=== PATIENT | male | born 1955 | race Caucasian/White ===

== ENCOUNTER 2020-05-07 16:46 | Outpatient (REF) | payer MEDICAID, SELFPAY | END 2020-05-07 16:47 | disposition home or self-care (01) | LOC: HO.LAB 16:46 | PROVIDERS: Visit Provider Internal Medicine | DX: Z20.828 Contact with and (suspected) exposure to other viral communicable diseases (principal) | CPT/HCPCS: C9803; U0003 ==

== ENCOUNTER 2020-11-17 16:00 | Emergency (ER) | payer MEDICAID, SELFPAY ==
--- NOTE | ~2020-11-17 | XR_ITS ---
EXAMINATION: XR FOOT, LEFT CLINICAL INFORMATION: Foreign body in great toe. COMPARISON: None TECHNIQUE: AP, lateral, and oblique views of the left foot. FINDINGS: There is a linear foreign body in the soft tissues of the great toe adjacent to the distal tuft at the lateral side of the great toe. This measures 0.8 cm of length. No fracture or dislocation. Bone and joint are normal. XR/XR foot LT min 3V IMPRESSION: Linear foreign body in the soft tissues of great toe
[2020-11-17 16:11] VITALS: BP 115/73; PULSE 79; RESP 18; TEMP 37.1; O2SAT 98; BMI 25.1
[2020-11-17 18:37] VITALS: BP 147/77; PULSE 69; O2SAT 99
--- NOTE | 2020-11-17 18:40 | ED.GENADULT ---
HPI - General Adult General Chief complaint: Skin/Abscess/Foreign Body Stated complaint: FB in foot Time Seen by Provider: 11/17/20 18:40 Source: patient Mode of arrival: ambulatory Limitations: no limitations History of Present Illness HPI narrative: Patient reports that he stepped on a glass 3 days ago and was trying to remove it from his left great toe. Patient reports that today he continues to have pain and slight swelling. He believes that the glasses still imbedded in their. Patient denies any other symptoms. Related Data Previous Rx's Medication Instructions Recorded amoxicillin-pot clavulanate 1 tab PO BID 7 Days #14 tab 11/17/20 [Augmentin] Allergies Allergy/AdvReac Type Severity Reaction Status Date / Time No Known Allergies Allergy Verified 11/17/20 18:50 Review of Systems Review of Systems: Constitutional : No Weight loss, No Fever, No Chills, No Night Sweats, No Fatigue, No Malaise ENT/Mouth : No Hearing loss, No Ear Pain, No Nasal Congestion, No Sinus Pain, No Hoarseness, No sore throat, No Rhinorrhea, No Swallowing Difficulty Eyes: No Eye Pain, No Swelling, No Redness, No Foreign Body, No Discharge, No Vision Changes Cardiovascular : No Chest Pain, No SOB, No Dyspnea on Exertion, No Orthopnea, No Edema, No Palpitations Respiratory : No Cough, No Sputum, No Wheezing, No Smoke Exposure, No Dyspnea Gastrointestinal : No Nausea, No Vomiting, No Diarrhea, No Constipation, No abdominal Pain, No Hematochezia, No Melena Genitourinary : no irregular bleeding, No Dysuria, No Urinary Frequency, No Hematuria, No Urinary Incontinence, No Urgency, No Flank Pain, No Urinary Flow Changes, No Hesitancy Musculoskeletal : No joint pain, No Myalgias, No Joint Swelling Skin : No Skin Lesions, No rash, piece of glass in left great toe Neuro : No Weakness, No Numbness, No Paresthesias, No Loss of Consciousness, No Dizziness, No Headache Psych : No Anxiety/Panic, No Depression, No SI/HI/AH/VH, No Social Issues, Heme/Lymph: No Bruising, No Bleeding,No Lymphadenopathy Endocrine : No Polyuria, No Polydipsia, No Temperature Intolerance Yes all other systems are reviewed and are negative [facility] Social History Social History Alcohol intake: former Patient Tobacco Use Status: Never used Tobacco Use of substances other than those prescribed or required for medical reasons: No Advance Directives: No Advance Directives Information Provided: Yes Physical Exam Vital Signs: Vital Signs: Last Vital Signs Temp 98.8 F 11/17/20 16:11 Pulse 66 11/17/20 20:06 Resp 16 11/17/20 20:06 BP 117/75 11/17/20 20:06 Pulse Ox 99 11/17/20 18:37 Body Mass Index 25.1 Const: General: healthy appearing, no acute distress and well developed Nutritional Appearance: well nourished Orientation/consciousness: patient oriented x3 Neck: Neck: Yes normal visual inspection, Yes full ROM and Yes trachea midline Thyroid: Thyroid normal Resp: Auscultation: clear to auscultation bilaterally Cardio: Rate: regular rate Rhythm: regular rhythm GI: Inspection: Yes normal to inspection and No distended Palpation (GI): No hepatosplenomegaly present Auscultation: normal bowel sounds Skin: General skin exam: elasticity normal, turgor normal and dry skin Neuro: General: patient oriented x3 Extrem: Left lower extremity: foot Details: foreign body (Left great toe) Course Course Course Narrative: 65-year-old male here today after stepping on a glass. Reports that the glass is still imbedded in his left great toe. Mild tenderness, swelling and redness. Negative for any drainage. We will attempt to remove it. Will confirm with x-ray after the removal Reevaluation(s) Reevaluation #1: X-ray showed linear foreign body in the soft tissue of the great toe. We will attempt to remove it. And send patient home on Augmentin. Procedures Foreign Body Removal Site: left and foot (Great toe) Description of foreign body: other (Glass) Sedation/Analgesia: other (Local Lidocaine) Complications: none Discharge Plan Discharge Clinical Impression: Foreign body (FB) in soft tissue Patient Disposition: Home, Self-Care Instructions: Puncture Wound in the Foot (ED) Additional Instructions: You were seen here today because you had glass stuck in your toe. 2 pieces of glass were removed from your toe. Your given 1st dose of antibiotic in the emergency department. Please finish your antibiotics. Observe your toe for any signs and symptoms of infection. You may return to emergency department if your symptoms will get worse or few will experience any other concerning symptoms. Prescriptions: New amoxicillin-pot clavulanate [Augmentin] 060-125 mg tablet 1 tab PO BID 7 Days Qty: 14 RF: 0 Interventions: ED Discharge Assessment Last Done: 11/17/20 21:30 Discharge Date/Time: 11/17/20 21:32
[2020-11-17] MEDS: Lidocaine HCl 2 % MPF 5 ML VIAL SUBCUT ×2 (19:12→21:24)
--- NOTE | 2020-11-17 19:24 | PC.NURSE ---
FIELDWORK COORDINATOR at bedside for wound repair.
[2020-11-17] MEDS: Diphth,Pertus(ACell),Tet Adult 0.5 ML SYRINGE IM (20:04)
[2020-11-17 20:06] VITALS: BP 117/75; PULSE 66; RESP 16
--- NOTE | 2020-11-17 20:06 | PC.NURSE ---
XRay at bedside. Pt medicated per MAR. Pt denies pain. VSS.
--- NOTE | 2020-11-17 20:47 | PC.NURSE ---
at bedside, attempting to remove glass shard from toe.
--- NOTE | 2020-11-17 21:02 | PC.NURSE ---
Glass removed from toe. fuel testing technician at bedside to apply bandage. Pt aware of plan for DC home.
[2020-11-17] MEDS: Amoxicillin/Potassium Clav 875 MG TABLET PO (21:24)
--- NOTE | 2020-11-17 21:30 | PC.NURSE ---
Pt medicated per JUL. Provided with DC paperwork.
== END 2020-11-17 21:32 | disposition home or self-care (01) ==
PROVIDERS: Emergency Provider Internal Medicine; PCP Internal Medicine
DX: M79.5 Residual foreign body in soft tissue (principal)
CPT/HCPCS: 10120; 73630; 90471; 90715; 99284